=== PATIENT | female | born 2000 | race Caucasian/White ===

== ENCOUNTER 2020-12-26 07:29 | Emergency (ER) | payer BC, SELFPAY ==
[2020-12-26 07:36] VITALS: BP 118/72; BP 129/74; PULSE 54; PULSE 65; RESP 18; TEMP 36.9; O2SAT 98; BMI 24.1
--- NOTE | 2020-12-26 07:52 | ED_ITS ---
HPI - Nausea/Vomiting/Diarrhea General Chief complaint: General Medical Stated complaint: n/v, sob Time Seen by Provider: 12/26/20 07:45 Source: patient and EMS Mode of arrival: EMS Limitations: no limitations History of Present Illness MD elicited complaint: nausea and vomiting Pertinent past history: cyclical vomiting Onset (ago): day(s) (2) Associated nausea: Yes Associated abdominal pain: Yes Location of pain: epigastric Pain consistency: intermittent Severity: mild Quality: aching Exacerbating factors: eating Relieving factors: none Context: marijuana use Associated symptoms: fever/chills, loss of appetite, malaise, nausea/vomiting, shortness of breath (feels like she can't catch her breath) and weakness Treatment prior to arrival: fluids and other (took zofran without relief) Related Data Previous Rx's Medication Instructions Recorded famotidine [Pepcid] 20 mg PO DAILY PRN #30 tab 12/26/20 hydroxyzine HCl 25 mg PO TID PRN #30 tab 12/26/20 metoclopramide HCl [Reglan] 10 mg PO Q6H PRN #30 tab 12/26/20 ondansetron 4 mg PO Q8H PRN #20 tab 12/26/20 Allergies Allergy/AdvReac Type Severity Reaction Status Date / Time No Known Allergies Allergy Unverified 04/17/20 17:38 [No Known Allergies*] Review of Systems Review of Systems: Constitutional : No Weight loss, No Fever, No Chills ENT/Mouth : No sore throat, No Rhinorrhea Eyes: No Swelling, No Redness Cardiovascular : No Chest Pain, pos SOB, NoEdema Respiratory : No Cough, No Sputum, No Wheezing Gastrointestinal : Positive Nausea, Positive Vomiting, positive Diarrhea, positive abdominal Pain, No Hematochezia, No Melena Genitourinary : No Dysuria, No Urinary Frequency, No Hematuria, No Urgency Musculoskeletal : No joint pain, No Myalgias, No Joint Swelling Skin : No Skin Lesions, No rash Neuro : No Weakness, No Numbness, No Dizziness, No Headache Psych : No Anxiety/Panic, No Depression Heme/Lymph: No Bruising, No Lymphadenopathy Endocrine : No Polyuria, No Polydipsia All other systems reviewed and are negative. Gastrointestinal: Gastrointestinal: Reports nausea PMFSH Past Medical History Attestation statement: The following information was validated with the patient. Medical History (Updated 12/26/20 @ 11:56 by Joy Christiansen DO) Cyclical vomiting Surgical History (Updated 12/26/20 @ 07:59 by Joy Christiansen DO) Delivery by section Social History Social History (Updated 12/26/20 @ 08:00 by Joy Christiansen DO) Patient Tobacco Use Status: Never used Tobacco Substance Use Type: Marijuana Advance Directives: Yes Advance Directives Information Provided: No Advance Directives on File: No Patient : No Physical Exam Vital Signs: Vital Signs: Last Vital Signs Temp 98.4 F 12/26/20 07:36 Pulse 66 12/26/20 09:56 Resp 18 12/26/20 09:56 BP 127/76 12/26/20 09:56 Pulse Ox 99 12/26/20 09:56 Body Mass Index 24.1 Appearance: Alert. Oriented X3. No acute distress. Anxious Eyes: Pupils equal, round and reactive to light. ENT: Pharynx normal. Neck: Normal inspection. Neck supple. CVS: Normal heart rate and rhythm. Pulses normal. Respiratory: No respiratory distress. Breath sounds normal. Abdomen: Soft and mild epigastric ttp Skin: Skin warm and dry. pale skin color. Normal skin turgor. Extremities: No lower extremity edema. No calf ttp Neuro: Oriented X 3. No motor deficit. No sensory deficit. Course Course Course Narrative: patient states she feels short of breath again, clear lungs, 98% on RA< no tachycardia ?anxiety, IV ativan ordered feels better, able to tolerate PO MDM - Nausea/Vomiting/Diarrhea MDM Narrative Medical decision making narrative: 20 yo female with hx of cyclical vomiting, does use heat and showers to help, all started after c section in april per her, smokes THC regularly - at this time will need labs, IVF, UA/hcg, anti emetics, discussed abstaining from THC use as possible cause, no RLQ pain no vazquez's sign Lab Data Result diagrams: 12/26/20 08:00 12/26/20 08:00 Labs: Lab Results 12/26/20 12/26/20 12/26/20 Range/Units 08:00 08:00 08:00 WBC 5.6 (4.8-10.8) X10*3/uL RBC 4.23 (4.20-5.50) X10*6/uL Hgb 11.4 L (12.0-16.0) g/dl Hct 36.5 L (37-47) % MCV 86.3 (80-98) fL MCH 27.0 (27.0-33.0) pg MCHC 31.2 (31.0-35.0) g/dl RDW 14.8 (11.0-16.0) % Plt Count 208 (160-400) X10*3/uL MPV 10.8 (9.4-12.3) fL Immature Gran % (Auto) 0.2 (0.0-0.4) % Neut % (Auto) 72.9 (45-73) % Lymph % (Auto) 16.2 L (20-40) % [place] % (Auto) 7.1 (2-11) % Eos % (Auto) 3.2 (0-4) % Baso % (Auto) 0.4 (0-2) % Lymph # (Auto) 0.9 L (1.2-4.9) X10*3/uL [place] # (Auto) 0.4 (0.1-1.2) X10*3/uL Eos # (Auto) 0.2 (0.0-0.4) X10*3/uL Baso # (Auto) 0.0 (0.0-0.2) X10*3/uL Abs Immat Gran (auto) 0.01 (0.00-0.03) X10*3/uL Absolute Neuts (auto) 4.1 (2.0-8.3) X10*3/uL Absolute Nucleated RBC 0.000 (0.0-0.012) X10*3/uL Nucleated RBC % (auto) 0.0 (0.0-0.2) /100WBC Hold Blue Top SEE NOTE Sodium (135-145) mmol/L Potassium (3.3-5.1) mmol/L Chloride (96-108) mmol/L Carbon Dioxide (22-29) mmol/L Anion Gap (12-20) BUN (9-16) mg/dL Creatinine (0.5-1.4) mg/dL Estim Creat Clear Calc Estimated GFR Random Glucose (60-115) mg/dL Calcium (8.4-10.2) mg/dL Magnesium (1.6-2.6) mg/dL Total Bilirubin (0.0-1.0) mg/dL Direct Bilirubin (0.0-0.5) mg/dL AST (5-31) U/L ALT (0-31) U/L Alkaline Phosphatase (39-117) U/L Total Protein (6.5-8.0) g/dL Albumin (3.5-5.0) g/dL Lipase (8-78) U/L Urine Color Urine Appearance Urine pH (5.0-8.0) Ur Specific [place] (1.005-1.025) Urine Protein (NEG-TRACE) MG/DL Urine Glucose (UA) (NEG) MG/DL Urine Ketones (NEG) MG/DL Urine Blood (NEG) Urine Nitrite (NEG) Ur Leukocyte Esterase (NEG) Urine Test (NEGATIVE) Urine Opiates Screen (Not Detect) Ur Barbiturates Screen (Not Detect) Ur Phencyclidine Scrn (Not Detect) Ur Amphetamines Screen (Not Detect) U Benzodiazepines Scrn (Not Detect) Urine Cocaine Screen (Not Detect) U Marijuana (THC) Screen (Not Detect) COVID-19 ([facility]) Negative (Negative) COVID-19 Clin Com See Note 12/26/20 12/26/20 12/26/20 Range/Units 08:00 08:00 08:00 WBC (4.8-10.8) X10*3/uL RBC (4.20-5.50) X10*6/uL Hgb (12.0-16.0) g/dl Hct (37-47) % MCV (80-98) fL MCH (27.0-33.0) pg MCHC (31.0-35.0) g/dl RDW (11.0-16.0) % Plt Count (160-400) X10*3/uL MPV (9.4-12.3) fL Immature Gran % (Auto) (0.0-0.4) % Neut % (Auto) (45-73) % Lymph % (Auto) (20-40) % [place] % (Auto) (2-11) % Eos % (Auto) (0-4) % Baso % (Auto) (0-2) % Lymph # (Auto) (1.2-4.9) X10*3/uL [place] # (Auto) (0.1-1.2) X10*3/uL Eos # (Auto) (0.0-0.4) X10*3/uL Baso # (Auto) (0.0-0.2) X10*3/uL Abs Immat Gran (auto) (0.00-0.03) X10*3/uL Absolute Neuts (auto) (2.0-8.3) X10*3/uL Absolute Nucleated RBC (0.0-0.012) X10*3/uL Nucleated RBC % (auto) (0.0-0.2) /100WBC Hold Blue Top Sodium 139 (135-145) mmol/L Potassium 3.2 L (3.3-5.1) mmol/L Chloride 108 (96-108) mmol/L Carbon Dioxide 22 (22-29) mmol/L Anion Gap 12 (12-20) BUN 5 L (9-16) mg/dL Creatinine 0.68 (0.5-1.4) mg/dL Estim Creat Clear Calc 128.3 Estimated GFR > 60 Random Glucose 104 (60-115) mg/dL Calcium 8.6 (8.4-10.2) mg/dL Magnesium 1.9 (1.6-2.6) mg/dL Total Bilirubin 0.6 (0.0-1.0) mg/dL Direct Bilirubin 0.3 (0.0-0.5) mg/dL AST 11 (5-31) U/L ALT 10 (0-31) U/L Alkaline Phosphatase 67 (39-117) U/L Total Protein 6.6 (6.5-8.0) g/dL Albumin 4.0 (3.5-5.0) g/dL Lipase 5 L (8-78) U/L Urine Color YELLOW Urine Appearance HAZY Urine pH 6.5 (5.0-8.0) Ur Specific [place] 1.015 (1.005-1.025) Urine Protein NEG (NEG-TRACE) MG/DL Urine Glucose (UA) NEG (NEG) MG/DL Urine Ketones 15 (NEG) MG/DL Urine Blood NEG (NEG) Urine Nitrite NEG (NEG) Ur Leukocyte Esterase NEG (NEG) Urine Test NEGATIVE (NEGATIVE) Urine Opiates Screen (Not Detect) Ur Barbiturates Screen (Not Detect) Ur Phencyclidine Scrn (Not Detect) Ur Amphetamines Screen (Not Detect) U Benzodiazepines Scrn (Not Detect) Urine Cocaine Screen (Not Detect) U Marijuana (THC) Screen (Not Detect) COVID-19 ([facility]) (Negative) COVID-19 Clin [facility] 12/26/20 Range/Units 08:00 WBC (4.8-10.8) X10*3/uL RBC (4.20-5.50) X10*6/uL Hgb (12.0-16.0) g/dl Hct (37-47) % MCV (80-98) fL MCH (27.0-33.0) pg MCHC (31.0-35.0) g/dl RDW (11.0-16.0) % Plt Count (160-400) X10*3/uL MPV (9.4-12.3) fL Immature Gran % (Auto) (0.0-0.4) % Neut % (Auto) (45-73) % Lymph % (Auto) (20-40) % [place] % (Auto) (2-11) % Eos % (Auto) (0-4) % Baso % (Auto) (0-2) % Lymph # (Auto) (1.2-4.9) X10*3/uL [place] # (Auto) (0.1-1.2) X10*3/uL Eos # (Auto) (0.0-0.4) X10*3/uL Baso # (Auto) (0.0-0.2) X10*3/uL Abs Immat Gran (auto) (0.00-0.03) X10*3/uL Absolute Neuts (auto) (2.0-8.3) X10*3/uL Absolute Nucleated RBC (0.0-0.012) X10*3/uL Nucleated RBC % (auto) (0.0-0.2) /100WBC Hold Blue Top Sodium (135-145) mmol/L Potassium (3.3-5.1) mmol/L Chloride (96-108) mmol/L Carbon Dioxide (22-29) mmol/L Anion Gap (12-20) BUN (9-16) mg/dL Creatinine (0.5-1.4) mg/dL Estim Creat Clear Calc Estimated GFR Random Glucose (60-115) mg/dL Calcium (8.4-10.2) mg/dL Magnesium (1.6-2.6) mg/dL Total Bilirubin (0.0-1.0) mg/dL Direct Bilirubin (0.0-0.5) mg/dL AST (5-31) U/L ALT (0-31) U/L Alkaline Phosphatase (39-117) U/L Total Protein (6.5-8.0) g/dL Albumin (3.5-5.0) g/dL Lipase (8-78) U/L Urine Color Urine Appearance Urine pH (5.0-8.0) Ur Specific [place] (1.005-1.025) Urine Protein (NEG-TRACE) MG/DL Urine Glucose (UA) (NEG) MG/DL Urine Ketones (NEG) MG/DL Urine Blood (NEG) Urine Nitrite (NEG) Ur Leukocyte Esterase (NEG) Urine Test (NEGATIVE) Urine Opiates Screen Not Detected (Not Detect) Ur Barbiturates Screen Not Detected (Not Detect) Ur Phencyclidine Scrn Not Detected (Not Detect) Ur Amphetamines Screen Not Detected (Not Detect) U Benzodiazepines Scrn Not Detected (Not Detect) Urine Cocaine Screen Not Detected (Not Detect) U Marijuana (THC) Screen POSITIVE H (Not Detect) COVID-19 ([facility]) (Negative) COVID-19 Clin Com Discharge Plan Discharge Clinical Impression: Acute hypokalemia Vomiting Qualifiers: Vomiting type: unspecified Vomiting Intractability: non-intractable Nausea presence: with nausea Qualified Code(s): R11.2 - Nausea with vomiting, unspecified Patient Disposition: Home, Self-Care Instructions: Acute Nausea and Vomiting (ED), Anxiety (ED) Additional Instructions: return to ED for any worsening symptoms or concerns stop smoking marijuana Prescriptions: New famotidine [Pepcid] 20 mg tablet 20 mg PO DAILY PRN (Reason: abdominal discomfort) Qty: 30 RF: 0 ondansetron 4 mg tablet,disintegrating 4 mg PO Q8H PRN (Reason: nausea and vomiting) Qty: 20 RF: 0 metoclopramide HCl [Reglan] 10 mg tablet 10 mg PO Q6H PRN (Reason: nausea and vomiting) Qty: 30 RF: 0 hydroxyzine HCl 25 mg tablet 25 mg PO TID PRN (Reason: nausea and vomiting) Qty: 30 RF: 0 Referrals: Physician,Unknown [Primary Care Provider] - 5 days Stand Alone Forms: Work/School Release
[2020-12-26 08:06] LABS: MANUAL DIFF FLAG NO
[2020-12-26] MEDS: Metoclopramide HCl 10 MG/2 ML VIAL IVPUSH (08:08)
[2020-12-26] MEDS: diphenhydrAMINE HCL 50 MG/ML VIAL 25 MG IVPUSH (08:08)
[2020-12-26 08:09] LABS: Basophils Percent Auto 0.4 % (0-2); Eosinophils Absolute Auto 0.2 X10*3/uL (0.0-0.4); Eosinophils Percent Auto 3.2 % (0-4); Glucose Urine UA NEG (NEG); Hematocrit 36.5 % (37-47); Hemoglobin 11.4 g/dl (12.0-16.0); Imm Gran Abs Auto 0.01 X10*3/uL (0.00-0.03); Imm Gran Pct Auto 0.2 % (0.0-0.4); Leukocyte Esterase Urine NEG (NEG); Lymphocytes Absolute Auto 0.9 X10*3/uL (1.2-4.9); Lymphocytes Percent Auto 16.2 % (20-40); Mean Corpuscular HGB Conc 31.2 g/dl (31.0-35.0); Mean Corpuscular Volume 86.3 fL (80-98); Mean Platelet Volume 10.8 fL (9.4-12.3); Monocytes Absolute Auto 0.4 X10*3/uL (0.1-1.2); Monocytes Percent Auto 7.1 % (2-11); Neutrophils Absolute Auto 4.1 X10*3/uL (2.0-8.3); Neutrophils Percent Auto 72.9 % (45-73); Nitrite Urine NEG (NEG); PH 6.5 (5.0-8.0); Platelet Count 208 X10*3/uL (160-400); Red Blood Count 4.23 X10*6/uL (4.20-5.50); Red Cell Distribution Width 14.8 % (11.0-16.0); Specific Gravity - Urine 1.015 (1.005-1.025); Urine Blood NEG (NEG); Urine Ketones 15 MG/DL (NEG); Urine Protein NEG (NEG-TRACE); White Blood Count 5.6 X10*3/uL (4.8-10.8)
[2020-12-26 08:10] LABS: Appearance Urine HAZY; Color Urine YELLOW
[2020-12-26 08:11] LABS: UPreg QC Valid YES; Urine Pregnancy NEGATIVE (NEGATIVE)
[2020-12-26] MEDS: 0.9 % Sodium Chloride 1,000 ML 999 ML IVCONT (08:14)
[2020-12-26 08:26] LABS: COVID-19 Test Negative (Negative)
[2020-12-26 08:45] LABS: Alanine Aminotransferase 10 U/L (0-31); Alkaline Phosphatase 67 U/L (39-117); Anion Gap 12 (12-20); Aspartate Amino Transferase 11 U/L (5-31); Bilirubin Direct 0.3 mg/dL (0.0-0.5); Bilirubin Total 0.6 mg/dL (0.0-1.0); Blood Urea Nitrogen 5 mg/dL (9-16); Calcium 8.6 mg/dL (8.4-10.2); Carbon Dioxide 22 mmol/L (22-29); Chloride 108 mmol/L (96-108); Creatinine Clr Calc Pharmacy 128.3; Estimated Glomerular Filt Rate > 60; Glucose Random 104 mg/dL (60-115); Lipase 5 U/L (8-78); Magnesium 1.9 mg/dL (1.6-2.6); Potassium 3.2 mmol/L (3.3-5.1); Sodium 139 mmol/L (135-145); Total Protein 6.6 g/dL (6.5-8.0)
[2020-12-26 08:46] LABS: Amphetamine Screen Urine Not Detected (Not Detect); Barbiturates, Urine Not Detected (Not Detect); Benzodiazepines Screen Urine Not Detected (Not Detect); Cannabinoid Screen Urine POSITIVE (Not Detect); Cocaine Screen Urine Not Detected (Not Detect); Opiate Screen Urine Not Detected (Not Detect); Phencyclidine Screen Urine Not Detected (Not Detect)
[2020-12-26] MEDS: Potassium Chloride Packet 20 MEQ PACKET 40 MEQ PO (08:59)
[2020-12-26 09:56] VITALS: BP 127/76; PULSE 66; RESP 18; O2SAT 99
[2020-12-26] MEDS: LORazepam 2 MG/ML VIAL 1 MG IVPUSH (09:58)
== END 2020-12-26 12:18 | disposition home or self-care (01) ==
PROVIDERS: Emergency Provider Emergency Medicine
DX: E87.6 Hypokalemia (principal); R11.2 Nausea with vomiting, unspecified; Z20.822 Contact with and (suspected) exposure to COVID-19; R10.13 Epigastric pain; F41.9 Anxiety disorder, unspecified; F12.90 Cannabis use, unspecified, uncomplicated
CPT/HCPCS: 36415; 80048; 80076; 80307; 81003; 81025; 83690; 83735; 85025; 87635; 96361; 96374; 96375; 99284; J1200; J2060; J2765

== ENCOUNTER 2021-01-26 07:35 | Emergency (ER) | payer BC, SELFPAY ==
[2021-01-26 08:17] VITALS: BP 133/70; PULSE 67; RESP 14; TEMP 36.9; O2SAT 97; BMI 22.7
[2021-01-26] MEDS: ondansetron HCL 4 MG/2 ML VIAL IVPUSH (09:25)
[2021-01-26] MEDS: 0.9 % Sodium Chloride 1,000 ML 999 ML IVCONT (09:25)
[2021-01-26 09:30] LABS: MANUAL DIFF FLAG NO
[2021-01-26 09:33] LABS: Appearance Urine CLEAR; Basophils Percent Auto 0.2 % (0-2); Color Urine YELLOW; Eosinophils Absolute Auto 0.1 X10*3/uL (0.0-0.4); Eosinophils Percent Auto 2.1 % (0-4); Glucose Urine UA NEG (NEG); Hematocrit 38.6 % (37-47); Hemoglobin 12.4 g/dl (12.0-16.0); Imm Gran Abs Auto 0.02 X10*3/uL (0.00-0.03); Imm Gran Pct Auto 0.3 % (0.0-0.4); Leukocyte Esterase Urine NEG (NEG); Lymphocytes Absolute Auto 0.7 X10*3/uL (1.2-4.9); Lymphocytes Percent Auto 12.7 % (20-40); Mean Corpuscular HGB Conc 32.1 g/dl (31.0-35.0); Mean Corpuscular Hemoglobin 27.7 pg (27.0-33.0); Mean Corpuscular Volume 86.2 fL (80-98); Mean Platelet Volume 10.7 fL (9.4-12.3); Monocytes Absolute Auto 0.3 X10*3/uL (0.1-1.2); Monocytes Percent Auto 4.5 % (2-11); Neutrophils Absolute Auto 4.6 X10*3/uL (2.0-8.3); Neutrophils Percent Auto 80.2 % (45-73); Nitrite Urine NEG (NEG); Platelet Count 249 X10*3/uL (160-400); Red Blood Count 4.48 X10*6/uL (4.20-5.50); Red Cell Distribution Width 14.6 % (11.0-16.0); Specific Gravity - Urine 1.025 (1.005-1.025); Urine Blood NEG (NEG); Urine Ketones 15 MG/DL (NEG); Urine Protein NEG (NEG-TRACE); White Blood Count 5.7 X10*3/uL (4.8-10.8)
--- NOTE | 2021-01-26 09:46 | ED.NAVMDI ---
HPI - Nausea/Vomiting/Diarrhea General Chief complaint: Nausea/Vomiting/Diarrhea Stated complaint: vomitting Time Seen by Provider: 01/26/21 08:58 Source: patient Mode of arrival: ambulatory Limitations: no limitations History of Present Illness HPI Narrative: 20 y/o female with history of cyclical vomiting, marijuana use who presents to the ER with 12 hours of vomiting and diarrhea. She has been dealing with N/V/D for the last 6+ months, since she had her baby in the Fall. She states she has not smoked or used any marijuana products in 2.5 weeks. She is on her menses and states the last time she was here for this issue she was also menstruating. She is tearful and stating she doesn't want to live anymore because of how she feels. She denies abdominal pain, fever, chills, or urinary symptoms. MD elicited complaint: nausea, vomiting and diarrhea Pertinent past history: cyclical vomiting Onset (ago): hour(s) Description of vomiting: food contents, watery and bilious Associated nausea: Yes Associated abdominal pain: No Location of pain: none Radiation: diffuse Severity: moderate Exacerbating factors: eating and vomiting Relieving factors: none Context: marijuana use Associated symptoms: anxiety Related Data Previous Rx's Medication Instructions Recorded famotidine [Pepcid] 20 mg PO DAILY PRN #30 tab 12/26/20 hydroxyzine HCl 25 mg PO TID PRN #30 tab 12/26/20 metoclopramide HCl [Reglan] 10 mg PO Q6H PRN #30 tab 12/26/20 ondansetron 4 mg PO Q8H PRN #20 tab 12/26/20 ondansetron HCl [Zofran] 4 mg PO Q8H PRN #12 tab 01/26/21 Allergies Allergy/AdvReac Type Severity Reaction Status Date / Time No Known Allergies Allergy Unverified 04/17/20 17:38 [No Known Allergies*] Review of Systems Review of Systems: Constitutional: No Fever, No Chills ENT/Mouth: No sore throat, No Rhinorrhea, No Swallowing Difficulty Cardiovascular: No Chest Pain, + SOB, No Orthopnea, No Edema Respiratory: No Cough, No Sputum, No Wheezing, No dyspnea Gastrointestinal: + Nausea, + Vomiting, + Diarrhea, No abdominal Pain, No Hematochezia, No Melena Genitourinary: No Dysuria, No Urinary Frequency, No Hematuria Musculoskeletal: No joint pain, No Myalgias Skin: No Skin Lesions, No rash Neuro: No Weakness, No Numbness, No Dizziness, No Headache Psych: + Anxiety/Panic, + Depression Heme/Lymph: No Bruising, No Lymphadenopathy Endocrine: No Polyuria, No Polydipsia Gastrointestinal: Gastrointestinal: Reports nausea PMFSH Past Medical History Medical History (Updated 01/26/21 @ 15:33 by DIDIER Elder) Cyclical vomiting Surgical History (Updated 12/26/20 @ 07:59 by Joy Christiansen DO) Delivery by section Social History Social History (Updated 12/26/20 @ 08:00 by Joy Christiansen DO) Patient Tobacco Use Status: Never used Tobacco Substance Use Type: Marijuana Advance Directives: Yes Advance Directives Information Provided: Yes Advance Directives on File: No Patient : No Physical Exam Vital Signs: Vital Signs: Last Vital Signs Temp 98.4 F 01/26/21 08:17 Pulse 67 01/26/21 08:17 Resp 18 01/26/21 14:54 BP 133/70 01/26/21 08:17 Pulse Ox 97 01/26/21 08:17 Body Mass Index 22.7 Appearance: Alert. Oriented X3. No acute distress. Eyes: Pupils equal, round and reactive to light. ENT: Pharynx normal. Neck: Normal inspection. Neck supple. CVS: Normal heart rate and rhythm. Pulses normal. Respiratory: No respiratory distress. Breath sounds normal. Abdomen: Soft and nontender. +BS x4 Skin: Skin warm and dry. Normal skin color. Normal skin turgor. No rashes. Extremities: No lower extremity edema. Neuro: Oriented X 3. No motor deficit. No sensory deficit. Tearful, anxious. Good insight Course Course Course Narrative: 20 y/o female presenting with recurrent N/V/D, previously diagnosed with cyclical vomiting syndrome. Reports not using THC however her urine test is still postitive. She is anxious and tearful, still nauseated after Zofran. No vomiting seen. IV ativan ordered. Labs are unremarkable. Will have N evaluate her. Reevaluation(s) Reevaluation #1: Physician observation started at 10:33am. Patient placed in physician observation because patient is awaiting [facility] evaluation for the possible need of inpatient psych admission. At the time observation was started patient's vital signs were stable. Patient is alert and oriented. Neuro exam is non-focal. CV: RRR and lungs are clear. Will continue to monitor. Reevaluation #2: Patient seen by the CARE team - no longer suicidal now that she is physically feeling better. She is stable for discharge with outpatient services. MDM - Nausea/Vomiting/Diarrhea Lab Data Result diagrams: 01/26/21 09:22 01/26/21 09:22 Labs: Lab Results 01/26/21 01/26/21 01/26/21 Range/Units 09:22 09:22 09:22 WBC 5.7 (4.8-10.8) X10*3/uL RBC 4.48 (4.20-5.50) X10*6/uL Hgb 12.4 (12.0-16.0) g/dl Hct 38.6 (37-47) % MCV 86.2 (80-98) fL MCH 27.7 (27.0-33.0) pg MCHC 32.1 (31.0-35.0) g/dl RDW 14.6 (11.0-16.0) % Plt Count 249 (160-400) X10*3/uL MPV 10.7 (9.4-12.3) fL Immature Gran % (Auto) 0.3 (0.0-0.4) % Neut % (Auto) 80.2 H (45-73) % Lymph % (Auto) 12.7 L (20-40) % [place] % (Auto) 4.5 (2-11) % Eos % (Auto) 2.1 (0-4) % Baso % (Auto) 0.2 (0-2) % Lymph # (Auto) 0.7 L (1.2-4.9) X10*3/uL [place] # (Auto) 0.3 (0.1-1.2) X10*3/uL Eos # (Auto) 0.1 (0.0-0.4) X10*3/uL Baso # (Auto) 0.0 (0.0-0.2) X10*3/uL Abs Immat Gran (auto) 0.02 (0.00-0.03) X10*3/uL Absolute Neuts (auto) 4.6 (2.0-8.3) X10*3/uL Absolute Nucleated RBC 0.000 (0.0-0.012) X10*3/uL Nucleated RBC % (auto) 0.0 (0.0-0.2) /100WBC Sodium 139 (135-145) mmol/L Potassium 4.2 D (3.3-5.1) mmol/L Chloride 107 (96-108) mmol/L Carbon Dioxide 27 (22-29) mmol/L Anion Gap 9 L (12-20) BUN 9 D (9-16) mg/dL Creatinine 0.69 (0.5-1.4) mg/dL Estim Creat Clear Calc 126.4 Estimated GFR > 60 Random Glucose 111 (60-115) mg/dL Calcium 9.5 D (8.4-10.2) mg/dL Magnesium 2.1 (1.6-2.6) mg/dL Total Bilirubin 0.5 (0.0-1.0) mg/dL Direct Bilirubin 0.2 (0.0-0.5) mg/dL AST 12 (5-31) U/L ALT 10 (0-31) U/L Alkaline Phosphatase 67 (39-117) U/L Total Protein 7.6 (6.5-8.0) g/dL Albumin 4.7 (3.5-5.0) g/dL Lipase 8 (8-78) U/L Urine Color YELLOW Urine Appearance CLEAR Urine pH 6.0 (5.0-8.0) Ur Specific [place] 1.025 (1.005-1.025) Urine Protein NEG (NEG-TRACE) MG/DL Urine Glucose (UA) NEG (NEG) MG/DL Urine Ketones 15 (NEG) MG/DL Urine Blood NEG (NEG) Urine Nitrite NEG (NEG) Ur Leukocyte Esterase NEG (NEG) Urine Opiates Screen (Not Detect) Ur Barbiturates Screen (Not Detect) Ur Phencyclidine Scrn (Not Detect) Ur Amphetamines Screen (Not Detect) U Benzodiazepines Scrn (Not Detect) Urine Cocaine Screen (Not Detect) U Marijuana (THC) Screen (Not Detect) 01/26/21 Range/Units 09:22 WBC (4.8-10.8) X10*3/uL RBC (4.20-5.50) X10*6/uL Hgb (12.0-16.0) g/dl Hct (37-47) % MCV (80-98) fL MCH (27.0-33.0) pg MCHC (31.0-35.0) g/dl RDW (11.0-16.0) % Plt Count (160-400) X10*3/uL MPV (9.4-12.3) fL Immature Gran % (Auto) (0.0-0.4) % Neut % (Auto) (45-73) % Lymph % (Auto) (20-40) % [place] % (Auto) (2-11) % Eos % (Auto) (0-4) % Baso % (Auto) (0-2) % Lymph # (Auto) (1.2-4.9) X10*3/uL [place] # (Auto) (0.1-1.2) X10*3/uL Eos # (Auto) (0.0-0.4) X10*3/uL Baso # (Auto) (0.0-0.2) X10*3/uL Abs Immat Gran (auto) (0.00-0.03) X10*3/uL Absolute Neuts (auto) (2.0-8.3) X10*3/uL Absolute Nucleated RBC (0.0-0.012) X10*3/uL Nucleated RBC % (auto) (0.0-0.2) /100WBC Sodium (135-145) mmol/L Potassium (3.3-5.1) mmol/L Chloride (96-108) mmol/L Carbon Dioxide (22-29) mmol/L Anion Gap (12-20) BUN (9-16) mg/dL Creatinine (0.5-1.4) mg/dL Estim Creat Clear Calc Estimated GFR Random Glucose (60-115) mg/dL Calcium (8.4-10.2) mg/dL Magnesium (1.6-2.6) mg/dL Total Bilirubin (0.0-1.0) mg/dL Direct Bilirubin (0.0-0.5) mg/dL AST (5-31) U/L ALT (0-31) U/L Alkaline Phosphatase (39-117) U/L Total Protein (6.5-8.0) g/dL Albumin (3.5-5.0) g/dL Lipase (8-78) U/L Urine Color Urine Appearance Urine pH (5.0-8.0) Ur Specific [place] (1.005-1.025) Urine Protein (NEG-TRACE) MG/DL Urine Glucose (UA) (NEG) MG/DL Urine Ketones (NEG) MG/DL Urine Blood (NEG) Urine Nitrite (NEG) Ur Leukocyte Esterase (NEG) Urine Opiates Screen Not Detected (Not Detect) Ur Barbiturates Screen Not Detected (Not Detect) Ur Phencyclidine Scrn Not Detected (Not Detect) Ur Amphetamines Screen Not Detected (Not Detect) U Benzodiazepines Scrn Not Detected (Not Detect) Urine Cocaine Screen Not Detected (Not Detect) U Marijuana (THC) Screen POSITIVE H (Not Detect) Discharge Plan Discharge Clinical Impression: Cyclical vomiting Depression Qualifiers: Depression Type: major depressive disorder Major depression recurrence: recurrent Active/Remission status: currently active Major depression episode severity: unspecified Qualified Code(s): F33.9 - Major depressive disorder, recurrent, unspecified Patient Disposition: Home, Self-Care Instructions: Depression (ED), Cyclic Vomiting Syndrome (ED) Additional Instructions: Your urine test was positive for marijuana - strongly advise against using any marijuana because it can lead to cyclical vomiting. Take the prescribed medication as needed for nausea. Follow up with your doctor this week. Follow up with your therapist PETRA. If you develop suicidal thoughts or any other concerning symptoms call 911 or come back to the ER for further evaluation. Prescriptions: New ondansetron HCl [Zofran] 4 mg tablet 4 mg PO Q8H PRN (Reason: nausea and vomiting) Qty: 12 RF: 0 No Action famotidine [Pepcid] 20 mg tablet 20 mg PO DAILY PRN (Reason: abdominal discomfort) Qty: 30 RF: 0 ondansetron 4 mg tablet,disintegrating 4 mg PO Q8H PRN (Reason: nausea and vomiting) Qty: 20 RF: 0 metoclopramide HCl [Reglan] 10 mg tablet 10 mg PO Q6H PRN (Reason: nausea and vomiting) Qty: 30 RF: 0 hydroxyzine HCl 25 mg tablet 25 mg PO TID PRN (Reason: nausea and vomiting) Qty: 30 RF: 0
[2021-01-26] MEDS: LORazepam 2 MG/ML VIAL 1 MG IVPUSH (10:00)
[2021-01-26 10:09] LABS: Amphetamine Screen Urine Not Detected (Not Detect); Barbiturates, Urine Not Detected (Not Detect); Benzodiazepines Screen Urine Not Detected (Not Detect); Cannabinoid Screen Urine POSITIVE (Not Detect); Cocaine Screen Urine Not Detected (Not Detect); Opiate Screen Urine Not Detected (Not Detect); Phencyclidine Screen Urine Not Detected (Not Detect)
[2021-01-26 10:28] LABS: Alanine Aminotransferase 10 U/L (0-31); Albumin Level 4.7 g/dL (3.5-5.0); Alkaline Phosphatase 67 U/L (39-117); Anion Gap 9 (12-20); Aspartate Amino Transferase 12 U/L (5-31); Bilirubin Direct 0.2 mg/dL (0.0-0.5); Bilirubin Total 0.5 mg/dL (0.0-1.0); Blood Urea Nitrogen 9 mg/dL (9-16); Calcium 9.5 mg/dL (8.4-10.2); Carbon Dioxide 27 mmol/L (22-29); Chloride 107 mmol/L (96-108); Creatinine Clr Calc Pharmacy 126.4; Estimated Glomerular Filt Rate > 60; Glucose Random 111 mg/dL (60-115); Lipase 8 U/L (8-78); Magnesium 2.1 mg/dL (1.6-2.6); Potassium 4.2 mmol/L (3.3-5.1); Sodium 139 mmol/L (135-145); Total Protein 7.6 g/dL (6.5-8.0)
--- NOTE | 2021-01-26 11:26 | PC.NURSE ---
Pt transferred to pod from main ED without issue, accompanied by her partner. Cooperative with change management. Currently resting in bed.
--- NOTE | 2021-01-26 12:42 | PC.NURSE ---
CARE team currently meeting with pt
--- NOTE | 2021-01-26 14:47 | MHC.CARE ---
Met with pt. Pt arrived at the ED with a complaint of nausea and vomiting. At some point in time, pt expressed that she was experiencing depression, and didn?t ?want to be her anymore?. Pt was then moved to the behavioral health pod. Upon speaking with pt and her partner, it was discovered that pt has been experiencing depression since high school and had a therapist in high school and has one presently that she sees during the week. Pt reports no SI at present or in the past. When asked for clarification on the statement regarding her not wanting to be here anymore, she explained that she was tired of the nausea, vomiting and diarrhea she had been experiencing since giving and the discomfort associated with it. Pt again explained that she has no thoughts of self-harm. Pt stated that she has a child now and would never do anything to harm herself or her child. Pt reports no A/V H and does not appear to be experiencing either. There was mention of an incident regarding pt ?wandering through a cemetery with her ? and police involvement regarding that. When asked, pt stated that her dog had gotten a hold of a diaper full of excrement and caused a mess of substantial size. Pt said that her partner was cleaning the dog and the mess so she left to go for a ride with the . She found her way to a cemetery where her great grandmother is buried and began to walk the cemetery with the infant to locate the place of the burial. Concerned family members called the police, not knowing where pt and child went, and the police eventually located her at the cemetery. This did not occur today and was not the catalyst for [place] [facility] reports that she and her infant were safe. Pt reports feeling safe and missing her child. She believes she needs counseling of more than once a week and ?Someone to talk to?. Her partner is back at work so she is alone with the infant now while he is gone. CARE Team contacted Melissa from [facility]. They will call pt tomorrow or the day after to discuss what they have to offer. A referral was submitted via telephone to [facility]. The recommendation is for pt to be discharged with supports.
[2021-01-26 14:54] VITALS: RESP 18
--- NOTE | 2021-01-26 14:55 | PC.NURSE ---
Pt resting comfortably in bed at current, pt's mother at bedside, no complaints at this time.
== END 2021-01-26 15:57 | disposition home or self-care (01) ==
PROVIDERS: Physician Assistant; Emergency Provider Emergency Medicine Emergency Medical Services; PCP Nurse Practitioner
DX: R11.15 Cyclical vomiting syndrome unrelated to migraine (principal); F33.9 Major depressive disorder, recurrent, unspecified; Z79.899 Other long term (current) drug therapy
CPT/HCPCS: 36415; 80048; 80076; 80307; 81003; 83690; 83735; 85025; 96361; 96374; 96375; 99284; 99285; J2060; J2405

== ENCOUNTER 2022-05-25 11:16 | Emergency (ER) | payer BC, SELFPAY ==
--- NOTE | ~2022-05-25 | CT_ITS ---
EXAMINATION: CT HEAD WITHOUT CONTRAST CLINICAL INFORMATION: Right-sided deficit COMPARISON: None TECHNIQUE: Contiguous axial imaging was performed from the skull base to vertex without intravenous administration of contrast. This CT examination was performed using dose optimization techniques as appropriate, variously including the following: *Automated exposure control *Adjustment of mA and/or kV according to patient size (this includes techniques or standardized protocols for targeted exams where dose is matched to indication/reason for exam; i.e. extremities or head) *Use of iterative reconstruction technique DLP: 631 mGy-cm FINDINGS: There is no evidence of acute intracranial hemorrhage or territorial infarction. No abnormal mass effect or midline shift is seen. Ferrer to white matter differentiation is well preserved. No extra-axial fluid collections are identified. No hydrocephalus. No significant volume loss. There is no abnormal attenuation within the brain parenchyma. No acute osseous or soft tissue abnormality. The mastoid air cells and visualized portions of the paranasal sinuses are well aerated. CT/CT head/brain wo IV con IMPRESSION: No acute intracranial pathology. Normal CT imaging appearance of the brain.
[2022-05-25 11:47] VITALS: BP 151/89; PULSE 71; RESP 18; TEMP 37.2; O2SAT 100; BMI 19.8
[2022-05-25 12:36] LABS: MANUAL DIFF FLAG NO
[2022-05-25 12:37] LABS: Basophils Percent Auto 0.4 % (0-2); Eosinophils Absolute Auto 0.3 X10*3/uL (0.0-0.4); Eosinophils Percent Auto 4.6 % (0-4); Hematocrit 36.1 % (37.0-47.0); Hemoglobin 11.7 g/dl (12.0-16.0); Imm Gran Abs Auto 0.03 X10*3/uL (0.00-0.03); Imm Gran Pct Auto 0.4 % (0.0-0.4); Lymphocytes Absolute Auto 1.4 X10*3/uL (1.2-4.9); Lymphocytes Percent Auto 20.4 % (20-40); Mean Corpuscular HGB Conc 32.4 g/dl (31.0-35.0); Mean Corpuscular Volume 86.4 fL (80.0-98.0); Monocytes Absolute Auto 0.5 X10*3/uL (0.1-1.2); Monocytes Percent Auto 7.7 % (2-11); Neutrophils Absolute Auto 4.5 x10*3/uL (2.0-8.3); Neutrophils Percent Auto 66.5 % (45-73); Platelet Count 212 X10*3/uL (160-400); Red Blood Count 4.18 X10*6/uL (4.20-5.50); Red Cell Distribution Width 14.1 % (11.0-16.0); White Blood Count 6.7 X10*3/uL (4.8-10.8)
[2022-05-25 12:54] LABS: Alanine Aminotransferase 11 U/L (0-31); Albumin Level 4.3 g/dL (3.5-5.0); Alkaline Phosphatase 42 U/L (39-117); Anion Gap 14 (12-20); Aspartate Amino Transferase 13 U/L (5-31); Bilirubin Direct 0.2 mg/dL (0.0-0.5); Bilirubin Total 0.3 mg/dL (0.0-1.0); Blood Urea Nitrogen 9 mg/dL (9-16); Calcium 9.4 mg/dL (8.4-10.2); Carbon Dioxide 23 mmol/L (22-29); Chloride 105 mmol/L (96-108); Creatinine Clr Calc Pharmacy 114.6; Estimated Glomerular Filt Rate > 60; Glucose Random 95 mg/dL (60-115); Lipase 8 U/L (8-78); Potassium 3.9 mmol/L (3.3-5.1); Sodium 138 mmol/L (135-145); Total Protein 7.4 g/dL (6.5-8.0)
--- NOTE | 2022-05-25 21:08 | ED.GENADULT ---
HPI - General Adult General Chief complaint: General Medical Stated complaint: Loss of Vision R Eye Nausea Time Seen by Provider: 05/25/22 21:08 Source: patient Mode of arrival: ambulatory Limitations: no limitations History of Present Illness HPI narrative: Patient with history of off and on headaches no diagnosis of migraine, ASD? Anxiety been nauseated vomiting for last 2 days getting better at around 08:30 patient noted that she could not see the right side of the visual field from the right eye holding lasted for about 15 minutes patient could see from the left eye denies any headache or vomiting at that no focal weakness patient became very anxious after that. Workup done prior to evaluation CT scan of head and labs were normal patient denies any pain in the eye no floaters or scotoma Related Data Previous Rx's Medication Instructions Recorded famotidine 20 mg tablet (Pepcid) 20 mg PO DAILY PRN abdominal 12/26/20 discomfort #30 tabs hydroxyzine HCl 25 mg tablet 25 mg PO TID PRN nausea and 12/26/20 vomiting #30 tabs metoclopramide HCl 10 mg tablet 10 mg PO Q6H PRN nausea and 12/26/20 (Reglan) vomiting #30 tabs ondansetron 4 mg disintegrating 4 mg PO Q8H PRN nausea and 01/26/21 tablet vomiting #10 tabs ondansetron HCl 4 mg tablet 4 mg PO Q8H PRN nausea and 01/26/21 (Zofran) vomiting #12 tabs Allergies Allergy/AdvReac Type Severity Reaction Status Date / Time No Known Allergies Allergy Unverified 04/17/20 17:38 [No Known Allergies*] Review of Systems Review of Systems: Yes all other systems are reviewed and are negative PMF Past Medical History Medical History Cyclical vomiting Surgical History Delivery by section Social History Social History Patient Tobacco Use Status: Never used Tobacco Substance Use Type: Marijuana Advance Directives: No Advance Directives Information Provided: No Physical Exam ED Vital Signs: Vital Signs - 24 hr 05/25/22 11:47 Temperature 98.9 F Pulse Rate 71 Respiratory Rate 18 Blood Pressure 151/89 H Pulse Oximetry 100 Oxygen Delivery Method Room Air BMI result Body Mass Index 19.8 Appearance: Alert. Oriented X3. No acute distress. Eyes: PERRLA, No Nystagmus, EOMI, IOP right eye 15 left eye 16, visual field intact bilateral, fundus exam negative, ultrasound of both eyes normal ENT: Pharynx normal. Oral Mucosa moist Neck: Normal inspection. Neck supple. CVS: Normal heart rate and rhythm. Pulses normal. Respiratory: No respiratory distress. Equal air entry bilateral, Abdomen: Soft and nontender. Bowel sounds are present, no mass palpable, no CVA tenderness Skin: Skin warm and dry. Normal skin color. Normal skin turgor. Extremities: No lower extremity edema. No calf tenderness Neuro: Oriented X 3. No motor deficit. No sensory deficit.No cerebellar signs , cranial nerves II-XII intact Procedures Procedure Narrative Procedure Narrative: Ocular ultrasound: Normal lens position, anterior chamber and posterior chamber no irregularity of retina no signs of detachment Medical Decision Making MDM Narrative Medical decision making narrative: Patient transient loss of vision from right eye etiology not very clear likely patient has ocular migraine at this time with no deficit patient advised to follow with neurologist and district branch manager meanwhile advised patient to take baby aspirin daily Lab Data Lab results reviewed: Yes I reviewed the patient's lab results. Result diagrams: 05/25/22 12:23 05/25/22 12:23 Labs: Lab Results 05/25/22 05/25/22 Range/Units 12:23 12:23 WBC 6.7 (4.8-10.8) X10*3/uL RBC 4.18 L (4.20-5.50) X10*6/uL Hgb 11.7 L (12.0-16.0) g/dl Hct 36.1 L (37.0-47.0) % MCV 86.4 (80.0-98.0) fL MCH 28.0 (27.0-33.0) pg MCHC 32.4 (31.0-35.0) g/dl RDW 14.1 (11.0-16.0) % Plt Count 212 (160-400) X10*3/uL MPV 10.0 (9.4-12.3) fL Immature Gran % (Auto) 0.4 (0.0-0.4) % Neut % (Auto) 66.5 (45-73) % Lymph % (Auto) 20.4 (20-40) % [place] % (Auto) 7.7 (2-11) % Eos % (Auto) 4.6 H (0-4) % Baso % (Auto) 0.4 (0-2) % Lymph # (Auto) 1.4 (1.2-4.9) X10*3/uL [place] # (Auto) 0.5 (0.1-1.2) X10*3/uL Eos # (Auto) 0.3 (0.0-0.4) X10*3/uL Baso # (Auto) 0.0 (0.0-0.2) X10*3/uL Abs Immat Gran (auto) 0.03 (0.00-0.03) X10*3/uL Absolute Neuts (auto) 4.5 (2.0-8.3) x10*3/uL Absolute Nucleated RBC 0.000 (0.0-0.012) X10*3/uL Nucleated RBC % (auto) 0.0 (0.0-0.2) /100WBC Sodium 138 (135-145) mmol/L Potassium 3.9 (3.3-5.1) mmol/L Chloride 105 (96-108) mmol/L Carbon Dioxide 23 (22-29) mmol/L Anion Gap 14 (12-20) BUN 9 (9-16) mg/dL Creatinine 0.70 (0.5-1.4) mg/dL Estim Creat Clear Calc 114.6 Estimated GFR > 60 Random Glucose 95 (60-115) mg/dL Calcium 9.4 (8.4-10.2) mg/dL Total Bilirubin 0.3 (0.0-1.0) mg/dL Direct Bilirubin 0.2 (0.0-0.5) mg/dL AST 13 (5-31) U/L ALT 11 (0-31) U/L Alkaline Phosphatase 42 D (39-117) U/L Total Protein 7.4 (6.5-8.0) g/dL Albumin 4.3 (3.5-5.0) g/dL Lipase 8 (8-78) U/L Discharge Plan Discharge Clinical Impression: Monocular vision loss Patient Disposition: Home, Self-Care Instructions: Blurred Vision (ED) Additional Instructions: cause of vision loss not clear likely blood vessel spasm vs migraine take baby aspirin for now see district branch manager/neurologist for further evaluation report to ed if recurrence of symptoms/focal weakness Prescriptions: No Action famotidine [Pepcid] 20 mg tablet 20 mg PO DAILY PRN (Reason: abdominal discomfort) Qty: 30 0RF metoclopramide HCl [Reglan] 10 mg tablet 10 mg PO Q6H PRN (Reason: nausea and vomiting) Qty: 30 0RF hydroxyzine HCl 25 mg tablet 25 mg PO TID PRN (Reason: nausea and vomiting) Qty: 30 0RF ondansetron HCl [Zofran] 4 mg tablet 4 mg PO Q8H PRN (Reason: nausea and vomiting) Qty: 12 0RF Rx Instructions: supervising MD Luke Torres ondansetron 4 mg tablet,disintegrating 4 mg PO Q8H PRN (Reason: nausea and vomiting) Qty: 10 0RF Rx Instructions: supervising MD Luke Torres Referrals: Ulysses Gauthier [Physician] - 2 days Santhosh Kaiser MD [Physician] - 3 days Interventions: ED Discharge Assessment Last Done: 05/25/22 21:44 Discharge Date/Time: 05/25/22 21:45
[2022-05-25] MEDS: Aspirin 81 MG TAB.CHEW PO (21:42)
--- OUTSIDE RECORDS SUMMARY | 2022-05-25 21:43 | XMS_ITS | Continuity of Care Document ---
:2000 Author Organization [facility] ic Address [address] [place] [address]- Care Team Providers Name Role Phone Azar Nash MD Primary Care Physician En[place] [facility] [place] Date(s): 04/27/21 - 06/25/[address] [address]- Attending Physician: Not on Staff, Attending MD Referring Physician: Azar Nash MD Allergies, Adverse Reactions, Alerts Substance Reaction Severity Status NKA Active Immunizations Given and Recorded Vaccine Date Status Refusal Reason tetanus/diphtheria/pertussis, acel(Tdap)1 04/28/20 Given influenza virus vaccine, inactivated 04/24/20 Given 1Early/Late Reason: Med Not Available Medications FLUoxetine 10 mg oral capsule 10 mg, 1, capsule, By Mouth, Daily, start at onset of symptoms and take until day four of menses, # 30 capsule, Refills 1, Tot. Refills 1, Maintenance, 06/16/21 9:26:00 EST, Route to Pharmacy Electronically, [facility] #[id number], Partial fill u... Start Date: 06/16/21 Status: Ordered Problem List Condition Effective Dates Status Health Status Informant PMDD (premenstrual dysphoric Active disorder)(Confirmed) Social History Social History Type Response Smoking Status Never (less than 100 in life time) entered on: 04/23/20 Sex
--- OUTSIDE RECORDS SUMMARY | 2022-05-25 21:43 | XMS_ITS | Continuity of Care Document ---
:2000 Author Organization [facility] ic Address [address] [place] [id number]- Care Team Providers Name Role Phone Saad GONCALVES, Azar Escalante Primary Care Physician [place] [facility] [place] Date(s): 03/03/22 - 04/02/[address] [address] Attending Physician: Rafa Elkins Admitting Physician: Rafa Elkins Referring Physician: AdmtrRafa Allergies, Adverse Reactions, Alerts No Known Allergies Immunizations Given and Recorded Vaccine Date Status Refusal Reason tetanus/diphtheria/pertussis, acel(Tdap)1 04/28/20 Given influenza virus vaccine, inactivated 04/24/20 Given 1Early/Late Reason: Med Not Available Medications Diflucan 150 mg oral tablet See Instructions, 1 tablet By Mouth, repeat in 72 hours, # 2 tablet, 0 Refills, Soft Stop, 01/14/22 10:34:00 EDT, [facility] #[id number], Partial fill upon patient request if the prescription is for a schedule II opioid drug., 170, cm, 01/12/22 1... Start Date: 01/14/22 Status: OrderedFLUoxetine 10 mg oral capsule 10 mg, 1, capsule, By Mouth, Daily, start at onset of symptoms and take until day four of menses, # 30 capsule, Refills 1, Tot. Refills 1, Maintenance, 06/16/21 9:26:00 EST, Route to Pharmacy Electronically, [facility] #[id number], Partial fill u... Start Date: 06/16/21 Status: Orderedmetronidazole topical 0.75% gel with applicator See Instructions, 1 applicator Vaginally at bedtime twice weekly, # 140 Gm, 1 Refills, Maintenance, 01/15/22 11:15:00 EDT, Gel, [id number], Partial fill upon patient request if the prescription is for a schedule II opioid drug., 1 natalia... Start Date: 01/15/22 Status: Ordered Problem List Condition Effective Dates Status Health Status Informant PMDD (premenstrual dysphoric Active disorder)(Confirmed) Social History Social History Type Response Smoking Status Never (less than 100 in life time) entered on: 04/23/20 Sex Care Team PersonnelName: Saad GONCALVES, Azar Escalante Address: [address] [place] [id number]
--- OUTSIDE RECORDS SUMMARY | 2022-05-25 21:43 | XMS_ITS | Continuity of Care Document ---
:2000 Author Organization [facility] Address [address] [place] [address]- Care Team Providers Name Role Phone Azar Nash MD Primary Care Physician [place] [facility] [place] - 09/14/[address] [address] Discharge Disposition: A-D/C Home Attending Physician: Debbie Vega MD Admitting Physician: Debbie Vega MD Referring Physician: Debbie Vega MD Allergies, Adverse Reactions, Alerts Substance Reaction Severity Status NKA Active Immunizations Given and Recorded Vaccine Date Status Refusal Reason tetanus/diphtheria/pertussis, acel(Tdap)1 04/28/20 Given influenza virus vaccine, inactivated 04/24/20 Given 1Early/Late Reason: Med Not Available Medications docusate sodium 100 mg oral tablet = 100 mg, By Mouth, 2 times a day, with plenty of water, # 60 tablet, 0 Refills, Maintenance, 04/29/20 8:28:00 EDT, Tablet, [email or web address] #[id number], 170, cm, 04/28/20 23:19:00 EDT, Height, 71.3, kg, 04/23/20 21:42:00 EDT, Dry Weight Start Date: 04/29/20 Status: Orderedferrous sulfate 325 mg oral enteric coated tablet 325 mg, By Mouth, Daily, may take with food to minimize abdominal discomfort, # 90 tablet, Refills 0, Tot. Refills 0, Maintenance, 04/29/20 8:28:00 EDT, [facility]ically, [id number], 170, cm, 04/28/20 23:19:00 EDT, Hei... Start Date: 04/29/20 Status: OrderedPrenatal Multivitamins By Mouth, Daily, 0 Refills, Maintenance, 04/23/20 15:40:00 EDT Start Date: 04/23/20 Status: Ordered Social History Social History Type Response Smoking Status Never (less than 100 in life time) entered on: 04/23/20 Sex
--- OUTSIDE RECORDS SUMMARY | 2022-05-25 21:43 | XMS_ITS | Continuity of Care Document ---
:2000 Author Organization [facility] Address [address] [place] [address]- Care Team Providers Name Role Phone Azar Nash MD Primary Care Physician Encounter [facility] Date(s): 06/01/21 - 06/01/[address] [address]- Discharge Disposition: A-D/C Walkout Attending Physician: Not on Staff, Attending MD Admitting Physician: Not on Staff, Admitting MD Referring Physician: Not on Staff, Referring MD Allergies, Adverse Reactions, Alerts Substance Reaction Severity Status NKA Active Immunizations Given and Recorded Vaccine Date Status Refusal Reason tetanus/diphtheria/pertussis, acel(Tdap)1 04/28/20 Given influenza virus vaccine, inactivated 04/24/20 Given 1Early/Late Reason: Med Not Available Vital Signs Most recent to oldest [Reference Range]: 1 Oxygen Saturation [94-100 %] 100 % (06/01/21 1:54 PM) Pulse Rate [55-90 bpm] 50 bpm *L* (06/01/21 1:54 PM) Blood Pressure [90-138/55-84 mm Hg] 124/76 mm Hg (06/01/21 1:54 PM) Respiratory Rate [16-30 br/min] 14 br/min *L* (06/01/21 1:54 PM) Temperature [96.8-100.4 DegF] 97.6 DegF (06/01/21 1:54 PM) Mode of Delivery (Oxygen) Room air (06/01/21 1:54 PM) Blood pressure sites Arm, left (06/01/21 1:54 PM) Temperature Route Oral (06/01/21 1:54 PM) Social History Social History Type Response Smoking Status Never (less than 100 in life time) entered on: 04/23/20 Sex
--- OUTSIDE RECORDS SUMMARY | 2022-05-25 21:43 | XMS_ITS | Continuity of Care Document ---
:2000 Author Organization [facility] ic Address [address] [place] [address]- Care Team Providers Name Role Phone Saad GONCALVES, Azar Escalante Primary Care Physician Encounter [facility] [place] Date(s): 07/28/21 - 08/27/[address] [address] Attending Physician: Rafa Elkins Admitting Physician: Rafa Elkins Referring Physician: Rafa Elkins Allergies, Adverse Reactions, Alerts No Known Allergies [...] 06/16/21 9:26:00 EST, Route to Pharmacy Electronically, [facility] #[id number], Partial fill u... Start Date: 06/16/21 Status: Ordered Problem List Condition Effective Dates Status Health Status Informant PMDD (premenstrual dysphoric Active disorder)(Confirmed) Social History Social History Type Response Smoking Status Never (less than 100 in life time) entered on: 04/23/20 Sex
--- OUTSIDE RECORDS SUMMARY | 2022-05-25 21:43 | XMS_ITS | Continuity of Care Document ---
:2000 Author Organization [facility] ic Address [address] [place] [address]- Care Team Providers Name Role Phone Saad GONCALVES, Azar Escalante Primary Care Physician [place] [facility] [place] - 08/27/[address] [address] Attending Physician: Not on Staff, Attending MD Allergies, Adverse Reactions, Alerts No Known Allergies [...] 06/16/21 9:26:00 EST, Route to Pharmacy Electronically, [facility] #[id number], Partial fill u... Start Date: 06/16/21 Status: Ordered Problem List Condition Effective Dates Status Health Status Informant PMDD (premenstrual dysphoric Active disorder)(Confirmed) Social History Social History Type Response Smoking Status Never (less than 100 in life time) entered on: 04/23/20 Sex
--- OUTSIDE RECORDS SUMMARY | 2022-05-25 21:43 | XMS_ITS | Continuity of Care Document ---
:2000 Author Organization [facility] ic Address [address] [place] [address]- Care Team Providers Name Role Phone Saad GONCALVES, Azar Escalante Primary Care Physician Encounter [facility] Date(s): 04/23/21 - 05/27/[address] [address] Attending Physician: Not on Staff, Attending MD Allergies, Adverse Reactions, Alerts Substance Reaction Severity Status NKA Active Immunizations Given and Recorded Vaccine Date Status Refusal Reason tetanus/diphtheria/pertussis, acel(Tdap)1 04/28/20 Given influenza virus vaccine, inactivated 04/24/20 Given 1Early/Late Reason: Med Not Available Social History Social History Type Response Smoking Status Never (less than 100 in life time) entered on: 04/23/20 Sex
--- OUTSIDE RECORDS SUMMARY | 2022-05-25 21:43 | XMS_ITS | Continuity of Care Document ---
:2000 Author Organization [facility] ic Address [address] [place] [address]- Care Team Providers Name Role Phone Saad GONCALVES, Azar Escalante Primary Care Physician [place] [facility] [place](s[place] 06/15/21 - 08/13/[address] [address]- Attending Physician: Not on Staff, Attending MD [...] 06/16/21 9:26:00 EST, Route to Pharmacy Electronically, [facility] #[id number], Partial fill u... Start Date: 06/16/21 Status: Ordered Problem List Condition Effective Dates Status Health Status Informant PMDD (premenstrual dysphoric Active disorder)(Confirmed) Social History Social History Type Response Smoking Status Never (less than 100 in life time) entered on: 04/23/20 Sex
--- OUTSIDE RECORDS SUMMARY | 2022-05-25 21:43 | XMS_ITS | Continuity of Care Document ---
:2000 Author Organization [facility] ic Address [address] [place] [address]- Care Team Providers Name Role Phone Azar Nash MD Primary Care Physician Encounter [facility] [place] Date(s): 06/09/21 - 07/09/[address] [address]- Allergies, Adverse Reactions, Alerts Substance Reaction Severity [...] 06/16/21 9:26:00 EST, Route to Pharmacy Electronically, [facility] #[id number], Partial fill u... Start Date: 06/16/21 Status: Ordered Problem List Condition Effective Dates Status Health Status Informant PMDD (premenstrual dysphoric Active disorder)(Confirmed) Social History Social History Type Response Smoking Status Never (less than 100 in life time) entered on: 04/23/20 Sex
--- OUTSIDE RECORDS SUMMARY | 2022-05-25 21:43 | XMS_ITS | Continuity of Care Document ---
:2000 Author Organization [facility] ic Address [address] [place] [address]- Care Team Providers Name Role Phone Saad GONCALVES, Azar Escalante Primary Care Physician Encounter [facility] [place] Date(s): 06/03/20 - 09/28/[address] [address] Attending Physician: Not on [...] 0 Refills, Maintenance, 04/29/20 8:28:00 EDT, Tablet, [facility] #[id number], 170, cm, 04/28/20 23:19:00 EDT, Height, 71.3, kg, 04/23/20 21:42:00 EDT, Dry Weight Start Date: 04/29/20 Status: Orderedferrous sulfate 325 mg oral enteric coated tablet 325 mg, By Mouth, Daily, may take with food to minimize abdominal discomfort, # 90 tablet, Refills 0, Tot. Refills 0, Maintenance, 04/29/20 8:28:00 EDT, Route to Pharmacy Electronically, [facility] #[id number], 170, cm, 04/28/20 23:19:00 EDT, Hei... Start Date: 04/29/20 Status: OrderedPrenatal Multivitamins By Mouth, Daily, 0 Refills, Maintenance, 04/23/20 15:40:00 EDT Start Date: 04/23/20 Status: Ordered Social History Social History Type Response Smoking Status Never (less than 100 in life time) entered on: 04/23/20 Sex
--- OUTSIDE RECORDS SUMMARY | 2022-05-25 21:43 | XMS_ITS | Continuity of Care Document ---
:2000 Author Organization [facility] Address [address] [place] [address]- Care Team Providers Name Role Phone Rachel Belcher NP Primary Care Physician [place] [facility] [place]17[place]20 - 05/17/20 [facility] [address] [place] [address] [facility] Allergies, Adverse Reactions, Alerts Substance Reaction Severity Status NKA Active Immunizations Given and Recorded Vaccine Date Status Refusal Reason tetanus/diphtheria/pertussis, acel(Tdap)1 04/28/20 Given influenza virus vaccine, inactivated 04/24/20 Given 1Early/Late Reason: Med Not Available Medications acetaminophen 325 mg oral tablet 650 mg, By Mouth, Every 4 hours, not to exceed 4000 mg/day, # 50 tablet, Refills 0, Tot. Refills 0, Acute 05/30/20 8:28:00 EDT, 04/29/20 8:27:00 EDT, Route to Pharmacy Electronically, [facility] #[id number], 170, cm, 04/28/20 23:19:00 EDT, Height... Start Date: 04/29/20 Stop Date: 05/30/20 Status: Ordereddocusate sodium 100 mg oral tablet = 100 mg, By Mouth, 2 times a day, with plenty of water, # 60 tablet, 0 Refills, Maintenance, 04/29/20 8:28:00 EDT, Tablet, [facility] #[id number], 170, cm, 04/28/20 23:19:00 EDT, Height, 71.3, kg, 04/23/20 21:42:00 EDT, Dry Weight Start Date: 04/29/20 Status: Orderedferrous sulfate 325 mg oral enteric coated tablet 325 mg, By Mouth, Daily, may take with food to minimize abdominal discomfort, # 90 tablet, Refills 0, Tot. Refills 0, Maintenance, 04/29/20 8:28:00 EDT, Route to Pharmacy Electronically, [facility] #[id number], 170, cm, 04/28/20 23:19:00 EDT, Hei... Start Date: 04/29/20 Status: Orderedibuprofen 800 mg oral tablet 800 mg, 1, tablet, By Mouth, Every 8 hours, not to exceed 3200 mg/day with food or milk, # 40 tablet, Refills 0, Tot. Refills 0, Acute 05/30/20 8:29:00 EDT, 04/29/20 8:28:00 EDT, Route to Pharmacy Electronically, [facility] #[id number], 170, cm,... Start Date: 04/29/20 Stop Date: 05/30/20 Status: OrderedPrenatal Multivitamins By Mouth, Daily, 0 Refills, Maintenance, 04/23/20 15:40:00 EDT Start Date: 04/23/20 Status: Orderedsimethicone 80 mg oral tablet, chewable 80 mg, Chew, 3 times a day, # 48 tablet, Refills 0, Tot. Refills 0, Acute 05/30/20 8:29:00 EDT, 04/29/20 8:28:00 EDT, Route to Pharmacy Electronically, [facility] #[id number], 170, cm, 04/28/20 23:19:00 EDT, Height, 71.3, kg, 04/23/20 21:42:00 ED... Start Date: 04/29/20 Stop Date: 05/30/20 Status: Ordered Social History Social History Type Response Smoking Status Never (less than 100 in life time) entered on: 04/23/20 Sex
--- OUTSIDE RECORDS SUMMARY | 2022-05-25 21:44 | XMS_ITS | Continuity of Care Document ---
:2000 Author Organization [facility] Address [address] [place] [address]- Care Team Providers Name Role Phone Not on Staff, PCP Primary Care Physician Unavailable Encounter [facility] Date(s): 11/28/19 - 12/28/19 [facility] [address] [place] [address] [facility] Attending Physician: Admtr, Ar8 Admitting Physician: Admtr, Ar8 Referring Physician: Admtr, Ar8 Allergies, Adverse Reactions, Alerts Substance Reaction Severity Status NKA Active
--- OUTSIDE RECORDS SUMMARY | 2022-05-25 21:44 | XMS_ITS | Continuity of Care Document ---
:2000 Author Organization [facility] ic Address [address] [place] [address]- Care Team Providers Name Role Phone Saad GONCALVES, Azar Escalante Primary Care Physician Encounter [facility] [place] Date(s): 01/12/22 - 04/02/[address] [address]- Attending Physician: Not on Staff, Attending MD [...] 0 Refills, Soft Stop, 01/14/22 10:34:00 EDT, [facility] #[id number], Partial fill upon patient request if the prescription is for a schedule II opioid drug., 170, cm, 01/12/22 1... Start Date: 01/14/22 Status: OrderedFLUoxetine 10 mg oral capsule 10 mg, 1, capsule, By Mouth, Daily, start at onset of symptoms and take until day four of menses, # 30 capsule, Refills 1, Tot. Refills 1, Maintenance, 06/16/21 9:26:00 EST, Route to Pharmacy Electronically, [facility] #[id number], Partial fill u... Start Date: 06/16/21 Status: Orderedmetronidazole topical 0.75% gel with applicator See Instructions, 1 applicator Vaginally at bedtime twice weekly, # 140 Gm, 1 Refills, Maintenance, 01/15/22 11:15:00 EDT, [id number], Partial fill upon patient request if the prescription is for a schedule II opioid drug., 1 natalia... Start Date: 01/15/22 Status: Ordered Problem List Condition Effective Dates Status Health Status Informant PMDD (premenstrual dysphoric Active disorder)(Confirmed) Social History Social History Type Response Smoking Status Never (less than 100 in life time) entered on: 04/23/20 Sex Care Team PersonnelName: Saad GONCALVES, Azar Escalante Address: [address] [place] [id number]
--- OUTSIDE RECORDS SUMMARY | 2022-05-25 21:44 | XMS_ITS | Continuity of Care Document ---
:2000 Author Organization [facility] Address [address] [place] [address]- Care Team Providers Name Role Phone Rachel Belhcer NP Primary Care Physician Encounter [facility] [place] Date(s): 04/23/20 - 04/29/[address] [address]- [facility] Discharge Disposition: A-D/C Home Attending Physician: Debbie [...] 04/29/20 8:27:00 EDT, Route to Pharmacy Electronically, [facility] #[id number], 170, cm, 04/28/20 23:19:00 EDT, Height... Start Date: 04/29/20 Stop Date: 05/30/20 Status: Ordereddocusate sodium 100 mg oral tablet = 100 mg, By Mouth, 2 times a day, with plenty of water, # 60 tablet, 0 Refills, Maintenance, 04/29/20 8:28:00 EDT, Tablet, [facility] #[id number], 170, cm, 04/28/20 23:19:00 EDT, Height, 71.3, kg, 04/23/20 21:42:00 EDT, Dry Weight Start Date: 04/29/20 Status: Orderedferrous sulfate 325 mg oral enteric coated tablet 325 mg, By Mouth, Daily, may take with food to minimize abdominal discomfort, # 90 tablet, Refills 0, Tot. Refills 0, Maintenance, 04/29/20 8:28:00 EDT, Route to Pharmacy Electronically, [facility] #[id number], 170, cm, 04/28/20 23:19:00 EDT, Hei... Start Date: 04/29/20 Status: Orderedibuprofen 800 mg oral tablet 800 mg, 1, tablet, By Mouth, Every 8 hours, not to exceed 3200 mg/day with food or milk, # 40 tablet, Refills 0, Tot. Refills 0, Acute 05/30/20 8:29:00 EDT, 04/29/20 8:28:00 EDT, Route to Pharmacy Electronically, [facility] #[id number], 170, cm,... Start Date: 04/29/20 Stop Date: 05/30/20 Status: OrderedoxyCODONE 5 mg oral tablet 5 mg, 1, tablet, By Mouth, Every 6 hours, PRN, # 6 tablet, Refills 0, Tot. Refills 0, Acute 208:29:00 EDT, Pain , Severe, 04/29/20 8:28:00 EDT, Route to Pharmacy Electronically, [facility] #[id number], Partial fill upon patient request, 17... Start Date: 04/29/20 Stop Date: 05/05/20 Status: OrderedPrenatal Multivitamins By Mouth, Daily, 0 Refills, Maintenance, 04/23/20 15:40:00 EDT Start Date: 04/23/20 Status: Orderedsimethicone 80 mg oral tablet, chewable 80 mg, Chew, 3 times a day, # 48 tablet, Refills 0, Tot. Refills 0, Acute 05/30/20 8:29:00 EDT, 04/29/20 8:28:00 EDT, Route to Pharmacy Electronically, [facility] #[id number], 170, cm, 04/28/20 23:19:00 EDT, Height, 71.3, kg, 04/23/20 21:42:00 ED... Start Date: 04/29/20 Stop Date: 05/30/20 Status: Ordered Procedures Procedure Date Related Diagnosis Body Site Status delivery only; 04/26/20 Comp leted Results Orders for Microbiology Reports Name Date Urine Culture (Culture Urine) 04/25/20 Microbiology Reports TEST:Urine Culture STATUS:Auth (Verified) BODY SITE: SOURCE:CLEAN COLLECTED DATE/TIME:04/25/20 11:00 PMUrine Culture SPECIMEN DESCRIPTION : CLEAN CATCH (URINE) SPECIAL REQUESTS : NONE CULTURE : NO GROWTH REPORT STATUS : FINAL 04/26/2020 Vital Signs Most recent to oldest 1 2 3 [Reference Range]: Height 170 cm 170 cm 170 cm (04/28/20 11:19 PM) (04/27/20 3:51 PM) (04/23/20 9: 42 PM) Weight 71.3 kg 71.3 kg 71.3 kg (04/23/20 11:55 PM) (04/23/20 9:42 PM) (04/23/20 3: 19 PM) Oxygen Saturation [94-100 %] 98 % 100 % 98 % (04/29/20 7:47 AM) (04/28/20 3:29 PM) (04/28/20 7:2 9 AM) Pulse Rate [55-90 bpm] 72 bpm 87 bpm 99 bpm (04/28/20 11:19 PM) (04/23/20 9:42 PM) *H* (04/23/20 3:38 PM ) Body Mass Index [18.5-24.99] 24.67 (04/23/20 9:42 PM) Blood Pressure [90-138/55-84 107/62 mm Hg 119/55 mm Hg 107 /61 mm Hg mm Hg] (04/29/20 7:47 AM) (04/28/20 11:19 PM) (04/28/20 3: 29 PM) Respiratory Rate [16-30 18 br/min 18 br/min 19 br/mi n br/min] (04/29/20 9:19 AM) (04/29/20 9:18 AM) (04/29/20 7:4 7 AM) Temperature [96.8-100.4 DegF] 97.7 DegF 97.9 DegF 97 .6 DegF (04/29/20 7:47 AM) (04/28/20 11:19 PM) (04/28/20 3: 29 PM) Mode of Delivery (Oxygen) Room air Room air Room a ir (04/26/20 5:25 AM) (04/26/20 5:00 AM) (04/26/20 4:4 5 AM) Blood pressure sites Arm, right Arm, right Arm, right (04/28/20 3:29 PM) (04/28/20 7:29 AM) (04/26/20 4:0 0 AM) Temperature Route Oral Oral Oral (04/29/20 7:47 AM) (04/28/20 11:19 PM) (04/28/20 3: 29 PM) Dry Weight 71.3 kg 71.3 kg (04/23/20 9:42 PM) (04/23/20 3:19 PM) Weight Obtained Via Standing scale (04/23/20 3:19 PM) Dry Weight Obtained Via Standing scale (04/23/20 3:19 PM) Social History Social History Type Response Smoking Status Never (less than 100 in life time) entered on: 04/23/20 Sex
--- OUTSIDE RECORDS SUMMARY | 2022-05-25 21:44 | XMS_ITS | Continuity of Care Document ---
:2000 Author Organization [facility] Address [address] [place] [id number]- Care Team Providers Name Role Phone Saad GONCALVES, Azar Escalante Primary Care Physician Encounter [facility] [place] Date(s): 08/29/20 - 09/28/[address] [address]- Attending Physician: Rafa Elkins Admitting Physician: AdmtrRafa Referring Physician: AdmtrRafa Allergies, Adverse Reactions, Alerts Substance Reaction Severity [...] 0 Refills, Maintenance, 04/29/20 8:28:00 EDT, Tablet, [facility] #[id number], 170, cm, 04/28/20 23:19:00 EDT, Height, 71.3, kg, 04/23/20 21:42:00 EDT, Dry Weight Start Date: 04/29/20 Status: Orderedferrous sulfate 325 mg oral enteric coated tablet 325 mg, By Mouth, Daily, may take with food to minimize abdominal discomfort, # 90 tablet, Refills 0, Tot. Refills 0, Maintenance, 04/29/20 8:28:00 EDT, Route to Pharmacy Electronically, [id number], 170, cm, 04/28/20 23:19:00 EDT, Hei... Start Date: 04/29/20 Status: OrderedPrenatal Multivitamins By Mouth, Daily, 0 Refills, Maintenance, 04/23/20 15:40:00 EDT Start Date: 04/23/20 Status: Ordered Social History Social History Type Response Smoking Status Never (less than 100 in life time) entered on: 04/23/20 Sex
--- OUTSIDE RECORDS SUMMARY | 2022-05-25 21:44 | XMS_ITS | Continuity of Care Document ---
:2000 Author Organization [facility] ic Address [address] [place] [id number]- Care Team Providers Name Role Phone Azar Nash MD Primary Care Physician [place] [facility] [place]/04[place] - 07/09/[address] [address] Attending Physician: Not on Staff, Attending MD [...] 06/16/21 9:26:00 EST, Route to Pharmacy Electronically, [facility] #[id number], Partial fill u... Start Date: 06/16/21 Status: Ordered Problem List Condition Effective Dates Status Health Status Informant PMDD (premenstrual dysphoric Active disorder)(Confirmed) Social History Social History Type Response Smoking Status Never (less than 100 in life time) entered on: 04/23/20 Sex
--- OUTSIDE RECORDS SUMMARY | 2022-05-25 21:44 | XMS_ITS | Continuity of Care Document ---
:2000 Author Organization [facility] Address [address] [place] [address]- Care Team Providers Name Role Phone Rachel Belcher NP Primary Care Physician [place] [facility] [place](s): 04/23/20 - 05/23/[address] [facility] [address] [place] [id number]- [facility] Allergies, Adverse Reactions, Alerts Substance Reaction Severity [...] 04/29/20 8:27:00 EDT, Route to Pharmacy Electronically, [facility] #[id number], 170, cm, 04/28/20 23:19:00 EDT, Height... Start Date: 04/29/20 Stop Date: 05/30/20 Status: Ordereddocusate sodium 100 mg oral tablet = 100 mg, By Mouth, 2 times a day, with plenty of water, # 60 tablet, 0 Refills, Maintenance, 04/29/20 8:28:00 EDT, Tablet, [facility] #[id number], 170, cm, 04/28/20 23:19:00 EDT, Height, 71.3, kg, 04/23/20 21:42:00 EDT, Dry Weight Start Date: 04/29/20 Status: Orderedferrous sulfate 325 mg oral enteric coated tablet 325 mg, By Mouth, Daily, may take with food to minimize abdominal discomfort, # 90 tablet, Refills 0, Tot. Refills 0, Maintenance, 04/29/20 8:28:00 EDT, Route to Pharmacy Electronically, [facility] #[id number], 170, cm, 04/28/20 23:19:00 EDT, Hei... Start Date: 04/29/20 Status: Orderedibuprofen 800 mg oral tablet 800 mg, 1, tablet, By Mouth, Every 8 hours, not to exceed 3200 mg/day with food or milk, # 40 tablet, Refills 0, Tot. Refills 0, Acute 05/30/20 8:29:00 EDT, 04/29/20 8:28:00 EDT, Route to Pharmacy Electronically, [facility] #[id number], 170, cm,... Start Date: 04/29/20 Stop Date: 05/30/20 Status: OrderedPrenatal Multivitamins By Mouth, Daily, 0 Refills, Maintenance, 04/23/20 15:40:00 EDT Start Date: 04/23/20 Status: Orderedsimethicone 80 mg oral tablet, chewable 80 mg, Chew, 3 times a day, # 48 tablet, Refills 0, Tot. Refills 0, Acute 05/30/20 8:29:00 EDT, 04/29/20 8:28:00 EDT, Route to Pharmacy Electronically, [facility] #[id number], 170, cm, 04/28/20 23:19:00 EDT, Height, 71.3, kg, 04/23/20 21:42:00 ED... Start Date: 04/29/20 Stop Date: 05/30/20 Status: Ordered Social History Social History Type Response Smoking Status Never (less than 100 in life time) entered on: 04/23/20 Sex
== END 2022-05-25 21:45 | disposition home or self-care (01) ==
LOC: HO.ED 21:41
PROVIDERS: Emergency Provider Internal Medicine; PCP Nurse Practitioner
DX: H54.3 Unqualified visual loss, both eyes (principal); R51.9 Headache, unspecified; Z79.899 Other long term (current) drug therapy
CPT/HCPCS: 36415; 70450; 80048; 80076; 83690; 85025; 99282; 99284

== ENCOUNTER 2022-06-16 09:09 | Outpatient (REF) | payer BC, SELFPAY ==
--- NOTE | ~2022-06-16 | MR_ITS ---
EXAMINATION: MR BRAIN WITHOUT CONTRAST CLINICAL INFORMATION: Ocular migraine COMPARISON: None TECHNIQUE: Multiplanar multisequence MR imaging of the brain was obtained without intravenous contrast. FINDINGS: There is no acute infarct on diffusion-weighted imaging. There is no intracranial hemorrhage on iron-sensitive imaging. No extra-axial collection or mass effect/herniation. Normal parenchymal signal characteristics. No hydrocephalus. The ventricles are normal in morphology and size. The major flow voids at the skull base are preserved. The midline structures are normal. The cerebellar tonsils are normally positioned. The craniocervical junction is normal. Marrow signal is within normal limits. The visualized soft tissues are without significant abnormality. Small right maxillary sinus mucous retention cysts. Mild scattered paranasal sinus mucosal thickening. MR/MR head/brain wo con IMPRESSION: Unremarkable noncontrast MRI of the brain.
== END 2022-06-16 09:10 | disposition home or self-care (01) ==
LOC: HO.MRI 09:09
PROVIDERS: Visit Provider Psychiatry & Neurology Neurology
DX: G43.109 Migraine with aura, not intractable, without status migrainosus (principal)
CPT/HCPCS: 70551